=== PATIENT | male | born 1980 | race Caucasian/White ===

== ENCOUNTER 2023-03-04 08:16 | Emergency (ER) | payer OTHER, SELFPAY ==
[2023-03-04 08:21] VITALS: BP 146/104; PULSE 90; RESP 14; TEMP 36.8; O2SAT 97; BMI 27.9
--- NOTE | 2023-03-04 08:57 | ED_ITS ---
HPI - Dental/Oral General: Chief complaint: Dental/Oral Stated complaint: Dental/Fever, Swelling, pain Time Seen by Provider: 03/04/23 08:20 History of Present Illness: Patient presents to the ER with complaints of right-sided facial pain and swelling. Patient had a root canal on 02/28/2023 and has increased pain and swelling since procedure. Patient was initially put on a penicillin and within a couple days thought the pain and swelling was getting worse so he called the dentist to change him over to clindamycin. Patient says the overall he is feeling better but is still swollen and painful. MD Complaint: tooth pain Onset (ago): day(s) Duration: constant Severity: mild Relieving factors: nothing Exacerbating factors: chewing, drinking fluids and swallowing Context: other (Recent root canal) Treatment prior to arrival: none Review of Systems General: Reports: 10 or more systems reviewed and unremarkable except in HPI and below Physical Exam Const: COMMON NORMALS: no acute distress, average body habitus, patient oriented x3, no limitations, healthy appearing, alert and well nourished HENMT: COMMON NORMALS: normocephalic, atraumatic, hearing grossly normal bilaterally, external ears normal, Normal external nose present and moist oral mucous membranes HEAD & SCALP: normocephalic and atraumatic NOSE: Normal external nose present EXTERNAL EAR: Yes external ears normal OTHER: Swelling noted over right mandibular region Eye: COMMON NORMALS: Equal, round and reactive pupils present, EOMs intact bilaterally, conjunctivae normal and no scleral icterus CONJUNCTIVA: Yes conjunctivae normal PUPIL: Yes Equal, round and reactive pupils present Neck/C-Spine: COMMON NORMALS: full ROM, no lymphadenopathy, supple, no mening eal signs, no JVD and Thyroid normal THYROID: Thyroid normal Chest: COMMONS NORMALS: normal inspection of the chest and normal palpation of entire chest wall Resp: COMMON NORMALS: normal respiratory effort, No retractions, No use of accessory muscles and clear to auscultation bilaterally AUSCULTATION: clear to auscultation bilaterally Cardio: COMMON NORMALS: no JVD, regular rate, regular rhythm, S1 normal heart sound present, S2 normal heart sound present, No gallops present (Cardio), No clicks present (Cardio), No murmurs present (Cardio) and No rub (Cardio) RAT E: regular rate RHYTHM: regular rhythm HEART SOUNDS: S1 normal heart sound present and S2 normal heart sound present GI: COMMON NORMALS: Normal to inspection, nondistended, normoactive bowel sounds present, Soft to palpation, non-tender, No hepatosplenomegaly present and no masses PALPATION: Yes Soft to palpation and Yes No hepatosplenomegaly present Neuro: COMMON NORMALS: patient oriented x3 SENSORIUM/ORIENTATION: Yes alert MENINGEAL SIGNS: Yes no meningeal signs Course Vital Signs: Vital signs: Vital Signs Temperature 98.2 F 03/04/23 08:21 Pulse Rate 90 03/04/23 08:21 Respiratory Rate 14 03/04/23 08:21 Blood Pressure 146/104 03/04/23 08:21 Pulse Oximetry 97 03/04/23 08:21 Oxygen Delivery Me thod Room Air 03/04/23 08:21 MDM - Dental/Oral Medical Decision Making Patient presents to the ER with complaints of right mandibular swelling post root canal. Patient is currently on clindamycin which is improving the patient's overall feeling but the area still swollen. Patient is reluctant to eat or drink secondary to pain. Patient was given IV bolus of normal saline,: Toradol 30 mg and Decadron 10 mg IV. Patient will be instructed to continue his antibiotic regimen and to follow-up with his dentist after the holidays. Differential Diagnosis Unlikely gingival abscess, dental caries, toothache, dental abscess, fracture of tooth or aphthous ulcer Medical Records I reviewed the patient's medical records. Lab Data I reviewed the patient's lab results. Discharge Plan Discharge Patient Disposition: Home Clinical Impression: Mandibular swelling Condition: Stable Discharge Orders: Discharge ED (Routine); Ordered 03/04/23 Ordered By: Cipriano Goodwin Referrals: Vadim Hui MD [Primary Care Provider] - Activity Restrictions/Additional Instructions: Please finish your antibiotics as directed by the dentist. Please take Tylenol and/or ibuprofen as directed for pain. If pain and swelling does not improve please follow back up with a dentist. Coding Level of Care Code ED Environmental Lead for Osiel Victor
[2023-03-04] MEDS: sodium chloride 0.9% 1,000 ML 999 ML IV (09:23)
[2023-03-04] MEDS: dexamethasone 10 mg/mL INJ IVP (09:24)
[2023-03-04] MEDS: ketorolac 30 mg/mL INJ IVP (09:24)
== END 2023-03-04 10:53 | disposition home or self-care (01) ==
PROVIDERS: Emergency Provider Emergency Medicine; PCP Family Medicine
DX: M79.89 Other specified soft tissue disorders (principal)
CPT/HCPCS: 96361; 96374; 96375; 99284; J1100; J1885; J7030

== ENCOUNTER 2023-03-06 03:14 | Emergency (ER) | payer OTHER, SELFPAY ==
--- NOTE | 2023-03-06 03:15 | ED_ITS ---
HPI - Dental/Oral General: Chief complaint: Dental/Oral Stated complaint: Tooth Pain Time Seen by Provider: 03/06/23 03:15 History of Present Illness: Mr. Mora is a 43-year-old gentleman presenting to the emergency department for evaluation of dental pain. He notes undergoing a root canal on 02/28. He developed a fever postoperatively and was placed on penicillin. He subsequently had increased swelling and was switched to clindamycin no was apparently accidentally only taking 1 dose daily as opposed to 4 pills daily. He presented to the ER on 03/04 and at that time was given steroids and NSAIDs with improvement in symptoms. He was seen by dentist on 03/05 without evidence of reported complication postoperatively. Currently endorses increased pain and swelling making it difficult to eat with sensation of jaw misalignment. Denies current fevers. Overall course of symptoms has persisted. Transient relief from previous treatments. Denies shortness of breath or difficulty tolerating oral secretions. No other specific changes in health, exacerbating, or alleviat ing factors identified. Teeth map: 1. Review of Systems General: Reports: 10 or more systems reviewed and unremarkable except in HPI and below PFSH ED PFSH: Medical History (Updated 03/16/23 @ 10:40 by Scott Nair MD) No significant past medical history Surgical History (Updated 03/16/23 @ 10:40 by Scott Nair MD) No significant past surgical history Physical Exam Const: COMMON NORMALS: alert GENERAL APPEARANCE: cooperative and well developed HENMT: COMMON NORMALS: normocephalic and atraumatic HEAD & SCALP: normocephalic and atraumatic OTHER: Swelling noted in the right posterior mandibular region with some extension. Initially moderate trismus. No evidence of hemorrhage. No evidence of airway distortion/uvular displacement. Eye: COMMON NORMALS: conjunctivae normal CONJUNCTIVA: Yes conjunctivae normal SCLERA: sclerae normal Neck/C-Spine: COMMON NORMALS: supple GENERAL: Yes trachea midline Resp: COMMON NORMALS: normal respiratory effort EFFORT & INSPECTION: Yes able to speak in complete sentences Cardio: COMMON NORMALS: regular rate and regular rhythm RATE: regular rate RHYTHM: regular rhythm GI: COMMON NORMALS: Soft to palpation PALPATION: Yes Soft to palpation and No Tenderness to palpation present (GI) Extremity: GENERAL: Yes normal exam except as noted and No edema Neuro: COMMON NORMALS: moves all extremities SENSORIUM/ORIENTATION: Yes alert and No Orientation impaired Psych: COMMON NORMALS: mental status grossly normal and Normal thought process present THOUGHT PROCESS: Normal thought process present Course Vital Signs: Vital signs: Vital Signs Temperature 98.5 F 03/06/23 03:22 Pulse Rate 69 03/06/23 04:53 Respiratory Rate 18 03/06/23 04:53 Blood Pressure 143/88 03/06/23 04:53 Pulse Oximetry 92 03/06/23 04:53 Oxygen Delivery Me thod Room Air 03/06/23 03:22 [facility] - Dental/Oral Medical Decision Making 43-year-old gentleman presenting due to postoperative concern. History as noted above. Exam as above. Patient was seen by dentist yesterday and no evidence of deep infection noted at that time. Patient is nontoxic. Treated with analgesia, steroids, IV antibiotic given history of incorrect medication dosage, fluids. On reassessment feel significantly improved. Trismus has essentially resolved. Satisfactory for continued outpatient management with analgesia and strict return precautions. The results of ED evaluation were discussed with the patient including prescriptions and/or symptomatic cares (if applicable) including appropriate and responsible use, followup plan, and return precautions. The patient verbalized understanding and felt safe for discharge. Medical Records I reviewed the patient's medical records. Lab Data I reviewed the patient's lab results. Discharge Plan Discharge Patient Disposition: Home Clinical Impression: Mouth swelling, Pain, dental, TMJ inflammation, Post-operative state Condition: Stable Prescriptions: New oxycodone 5 mg tablet 5 mg PO Q4H PRN (Reason: pain) Qty: 10 0RF Discharge Orders: Discharge ED (Routine); Ordered 03/06/23 Ordered By: Scott Nair Referrals: Vadim Hui MD [Primary Care Provider] - Discharge Diet: As Directed Discharge Activity: Limit activity as instructed Patient Instructions: Temporomandibular Disorder (ED), Root Canal (DC), Opioid Safety Activity Restrictions/Additional Instructions: Thank you for visiting the emergency department. You were seen and evaluated for jaw pain in the context of recent procedure. The exact cause of your symptoms is unclear however may be related to irritation and postoperative swelling. We are pleased that you had improvement in treatment. Please follow all previously given instructions. Please continue your antibiotics. I will prescribe oxycodone as discussed, use this cautiously. You may use [id number] medications such as acetaminophen and ibuprofen for pain however please do not exceed the daily recommended dosage as listed on the packaging and please keep in mind that many namebrand medications contain the same active ingredients. Please avoid these medications if previously instructed to do so by another physician due to other underlying medical condition. Please follow-up with your dentist. Return to the emergency department for worsening symptoms, fevers, difficulty swallowing or breathing, or anything else that you are concerned about and feel needs emergency department evaluation. Coding Level of Care Code ED Benefits Analyst for Osiel Victor
[2023-03-06 03:20] VITALS: BMI 28.8
[2023-03-06 03:22] VITALS: BP 160/90; PULSE 73; RESP 16; TEMP 36.9; O2SAT 94
[2023-03-06 03:40] VITALS: RESP 18
[2023-03-06] MEDS: dexamethasone 10 mg/mL INJ IVP (03:40)
[2023-03-06] MEDS: morphine 4 mg/mL SDV 1 mL IVP (03:40)
[2023-03-06] MEDS: ketorolac 30 mg/mL INJ 15 MG IVP (03:40)
[2023-03-06] MEDS: sodium chloride 0.9% 1,000 ML 999 ML IV (03:41)
[2023-03-06] MEDS: piperacillin-tazobactam 4.5 GM in sodium chloride 0.9% (plus) 50 ML IV (03:50)
[2023-03-06 04:53] VITALS: BP 143/88; PULSE 69; RESP 18; O2SAT 92
== END 2023-03-06 04:57 | disposition home or self-care (01) ==
PROVIDERS: Emergency Provider Emergency Medicine; PCP Family Medicine
DX: K08.89 Other specified disorders of teeth and supporting structures (principal); M26.69 Other specified disorders of temporomandibular joint; Z98.890 Other specified postprocedural states
CPT/HCPCS: 96361; 96374; 96375; 99284; J1100; J1885; J2270; J2543; J7030

== ENCOUNTER 2023-03-08 18:28 | Emergency (ER) | payer OTHER, SELFPAY ==
[2023-03-08] VITALS (12 sets, daily range): BP systolic 129–188; BP diastolic 81–109; PULSE 60–80; RESP 16–18; TEMP 36.9; O2SAT 95–98
--- NOTE | 2023-03-08 18:45 | W.ED.DENTAL ---
HPI - Dental/Oral General: Chief complaint: Dental/Oral Stated complaint: Root Canal Problems Time Seen by Provider: 03/08/23 18:44 History of Present Illness: Mr. Mora is a 43-year-old gentleman now approximately 8 days postop from root canal presenting with persistent swelling and pain. He has been seen in the ER previously. He has been on analgesics, steroids, antibiotics, he has also followed up with his primary care provider. Despite this he has had continued symptoms. Moderate in intensity with worsening rawness of the buccal surface and pain related to contact with teeth. Limited range of motion of jaw. No other specific changes in health, exacerbating, or alleviating factors identified. Onset (ago): day(s) Duration: constant Severity: moderate Relieving factors: nothing Exacerbating factors: chewing and swallowing Context: other Associated symptoms: Reports gum swelling, odynophagia and sore throat Review of Systems General: Reports: 10 or more systems reviewed and unremarkable except in HPI and below ENMT: Reports: odynophagia PFS ED PFSH: Medical History (Updated 03/16/23 @ 10:40 by Scott Nair MD) No significant past medical history Surgical History (Updated 03/16/23 @ 10:40 by Scott Nair MD) No significant past surgical history Physical Exam Const: COMMON NORMALS: alert GENERAL APPEARANCE: cooperative and well developed HENMT: COMMON NORMALS: normocephalic and atraumatic HEAD & SCALP: normocephalic and atraumatic OTHER: Right mandibular soft tissue swelling posteriorly. There is swelling of the soft tissue both posterior pharynx as well as buccal tissue with irritation related to swelling and contact with teeth. Eye: COMMON NORMALS: conjunctivae normal CONJUNCTIVA: Yes conjunctivae normal SCLERA: sclerae normal Neck/C-Spine: COMMON NORMALS: supple GENERAL: Yes trachea midline Resp: COMMON NORMALS: normal respiratory effort EFFORT & INSPECTION: Yes able to speak in complete sentences Cardio: COMMON NORMALS: regular rate and regular rhythm RATE: regular rate RHYTHM: regular rhythm Extremity: GENERAL: Yes normal exam except as noted and No edema Neuro: COMMON NORMALS: moves all extremities SENSORIUM/ORIENTATION: Yes alert and No Orientation impaired Psych: COMMON NORMALS: mental status grossly normal and Normal thought process present THOUGHT PROCESS: Normal thought process present Course Vital Signs: Vital signs: Vital Signs Temperature 98.5 F 03/08/23 18:36 Pulse Rate 61 03/08/23 23:30 Respiratory Rate 18 03/08/23 23:30 Blood Pressure 168/100 03/08/23 23:30 Pulse Oximetry 96 03/08/23 23:30 Oxygen Delivery Me thod Room Air 03/08/23 23:28 MDM - Dental/Oral Medical Decision Making 43-year-old gentleman presenting as repeat presentation for worsening swelling pain. Exam as above. Patient is nontoxic however uncomfortable appearing. No evidence of impending airway compromise. Labs notable for leukocytosis and mild hemoconcentration. Thrombocytosis which is likely reactive. Metabolic panel with mild hyponatremia and hypochloremia. Glucose is mildly elevated though clinical presentation is inconsistent with DKA and likely reactive. CT demonstrates large multiloculated fluid collection which is likely large peritonsillar abscess with inferior extension suggestive of Ludewig's angina. During ED course patient treated with analgesia, broad-spectrum antibiotics, additional doses of analgesia. Patient requires ENT/OMFS operative intervention. Discussed with OMFS at [facility] and patient accepted by hospital service as transfer. The results of ED evaluation were discussed with the patient including plan for transfer due to requirement for level of care not available if discharged to prevent significant worsening/deterioration. Patient agreeable with plan. Medical Records I reviewed the patient's medical records. Lab Data I reviewed the patient's lab results. 03/08/23 19:09 03/08/23 19:[address] 03/08/23 18:54 IMPRESSION: 1. 6.1 x 4.9 x 3.3 cm multiloculated fluid collection suggestive of a large peritonsillar abscess with inferior extension causing effacement of the parapharyngeal fat to the level of the mandible with a small amount of submandibular subcutaneous edema suggestive of associated Tre's angina. Moderate narrowing of the oropharynx is seen secondary to the mass. 2. Scattered prominent nonspecific nodes throughout the neck measuring up to 11 mm short axis in the right jugulodigastric region. Laboratory Results WBC 18.8 10^3/uL (4.0-10.0) H 03/08/23 19:09 RBC 5.68 10^6/uL (4.1-5.3) H 03/08/23 19:09 Hgb 15.5 g/dL (11.7-16.6) 03/08/23 19:09 Hct 46.9 % (42.0-52.0) 03/08/23 19:09 MCV 82.6 fl (80-94) 03/08/23 19:09 MCH 27.3 pg (28.0-34.0) L 03/08/23 19:09 MCHC 33.0 g/dL (30.0-36.0) 03/08/23 19:09 RDW 11.9 % (12.1-15.1) L 03/08/23 19:09 Plt Count 547 10^3/cmm (130-400) H 03/08/23 19:09 MPV 10.8 fL (7.4-10.4) H 03/08/23 19:09 Neut % (Auto) 84.1 % 03/08/23 19:09 Lymph % (Auto) 9.1 % 03/08/23 19:09 Lassen % (Auto) 4.9 % 03/08/23 19:09 Eos % (Auto) 0.0 % 03/08/23 19:09 Baso % (Auto) 0.2 % 03/08/23 19:09 Neut # (Auto) 15.81 10^3/uL (1.8-7.7) H 03/08/23 19:09 Lymph # (Auto) 1.7 10^3/uL (0.8-4.8) 03/08/23 19:09 Lassen # (Auto) 0.9 10^3/uL (0.2-0.9) 03/08/23 19:09 Eos # (Auto) 0.0 10^3/uL (0.0-0.8) 03/08/23 19:09 Baso # (Auto) 0.0 10^3/uL (0.0-0.1) 03/08/23 19:09 Nucleated RBC % (auto) 0 % 03/08/23 19:09 Nucleated RBCs # 0.0 /100WBC 03/08/23 19:09 Sodium 132 mmol/L (136-145) L 03/08/23 19:09 Potassium 4.6 mmol/L (3.5-5.1) 03/08/23 19:09 Chloride 95 mmol/L (98-107) L 03/08/23 19:09 Carbon Dioxide 20 mmol/L (22-29) L 03/08/23 19:09 Anion Gap 21.6 (5-19) H 03/08/23 19:09 BUN 12 mg/dL (6-20) 03/08/23 19:09 Creatinine 0.6 mg/dL (0.7-1.2) L 03/08/23 19:09 GFR Calculation 147.8 mL/min (90-130) H 03/08/23 19:09 Glucose 289 mg/dL (65-115) H 03/08/23 19:09 Calculated Osmolality 284 mOsm/kg (285-295) L 03/08/23 19:09 Lactic Acid 1.6 mmol/L (0.5-2.2) 03/08/23 19:09 Calcium 8.5 mg/dL (8.5-10.5) 03/08/23 19:09 Total Bilirubin 0.4 mg/dL (0.15-1.2) 03/08/23 19:09 AST 11 U/L (0-40) 03/08/23 19:09 ALT 24 U/L (0-41) 03/08/23 19:09 Alkaline Phosphatase 81 U/L (40-130) 03/08/23 19:09 Total Protein 7.2 g/dL (6.6-8.7) 03/08/23 19:09 Albumin 3.7 g/dL (3.5-5.2) 03/08/23 19:09 Globulin 3.5 g/dL (1.3-4.6) 03/08/23 19:09 Critical Care Time Critical Care Time: Critical Care Time: Yes Total Critical Care Time: 35 Attestation: Due to a high probability of clinically significant, possibly life threatening deterioration, the patient required my highest level of attention and preparedness to intervene emergently and I personally spent this critical care time directly and personally managing the patient. This critical care time included obtaining a history; examining the patient; pulse oximetry; ordering and review of laboratory and imaging studies; arranging urgent treatment with development of a management plan; evaluation of patient's response to treatment; frequent reassessment; and, discussions with other providers as applicable. It was exclusive of separately billable procedures. Primary system involved is infectious disease Discharge Plan Discharge Patient Disposition: Xfer Short-Term Hosp Clinical Impression: Abscess, peritonsillar, Tre's angina, Complication, postoperative infection Condition: Stable Referrals: Vadim Hui MD [Primary Care Provider] - Coding Level of Care Code ED Feller Seam Operator for Osiel Victor
--- NOTE | 2023-03-08 18:54 | CTR_ITS ---
PROCEDURE INFORMATION: Exam: CT Neck With Contrast Exam date and time: 03/08/2023 7:19 PM Age: 43 years old Clinical indication: Painful swallowing; Prior surgery; Surgery date: <1 month; Surgery type: Root canal; Additional info: Eval deep space infection/abscess, persistent swelling and pain 9 days post root canal TECHNIQUE: Imaging protocol: Computed tomography of the neck with contrast. Radiation optimization: All CT scans at this facility use at least one of these dose optimization techniques: automated exposure control; mA and/or kV adjustment per patient size (includes targeted exams where dose is matched to clinical indication); or iterative reconstruction. Contrast material: OMNI 350; Contrast volume: 75 ml; Contrast route: INTRAVENOUS (IV); REPORTING DATA: Count of CT and Cardiac NM exams in prior 12 months: This patient has received 0 known CTs and 0 known cardiac nuclear medicine studies in the 12 months prior to the current study. COMPARISON: No relevant prior studies available. RADIATION DOSE METRICS: Total DLP (mGy-cm): 234 FINDINGS: Pharynx: 6.1 x 4.9 x 3.3 cm multiloculated fluid collection suggestive of a large peritonsillar abscess with inferior extension causing effacement of the parapharyngeal fat to the level of the mandible with a small amount of submandibular subcutaneous edema suggestive of associated Tre's angina. Moderate narrowing of the oropharynx is seen secondary to the mass. Larynx: Unremarkable. Epiglottis is normal. Prevertebral and retropharyngeal spaces: Unremarkable. Salivary glands: Normal. Glands are normal in size. Thyroid: Normal. No enlarged or calcified nodules. Lymph nodes: Scattered prominent nonspecific nodes throughout the neck measuring up to 11 mm short axis in the right jugulodigastric region. Trachea: Visualized trachea is unremarkable. Lungs: Unremarkable as visualized. Bones/joints: Unremarkable. No acute fracture. Soft tissues: See Pharynx finding. CT/CT neck w con* [id number] IMPRESSION: 1. 6.1 x 4.9 x 3.3 cm multiloculated fluid collection suggestive of a large peritonsillar abscess with inferior extension causing effacement of the parapharyngeal fat to the level of the mandible with a small amount of submandibular subcutaneous edema suggestive of associated Tre's angina. Moderate narrowing of the oropharynx is seen secondary to the mass. 2. Scattered prominent nonspecific nodes throughout the neck measuring up to 11 mm short axis in the right jugulodigastric region.
[2023-03-08 19:24] LABS: Basophils % 0.2 %; Hematocrit 46.9 % (42.0-52.0); Hemoglobin 15.5 g/dL (11.7-16.6); Lymphocytes # 1.7 10^3/uL (0.8-4.8); Lymphocytes % 9.1 %; Mean Corpuscular Hemoglobin 27.3 pg (28.0-34.0); Mean Corpuscular Volume 82.6 fl (80-94); Mean Platelet Volume 10.8 fL (7.4-10.4); Monocytes # 0.9 10^3/uL (0.2-0.9); Monocytes % 4.9 %; Neutrophils # 15.81 10^3/uL (1.8-7.7); Neutrophils % 84.1 %; Nucleated Red Blood Cells % 0 %; Platelet Count 547 10^3/cmm (130-400); Red Blood Count 5.68 10^6/uL (4.1-5.3); Red Cell Distribution Width 11.9 % (12.1-15.1); White Blood Count 18.8 10^3/uL (4.0-10.0)
[2023-03-08] MEDS: iohexol 350 mg/mL 500 mL Btl (per mL) IV (19:26)
[2023-03-08 19:50] LABS: Alanine Aminotransferase 24 U/L (0-41); Albumin Level 3.7 g/dL (3.5-5.2); Alkaline Phosphatase 81 U/L (40-130); Anion Gap 21.6 (5-19); Aspartate Amino Transferase 11 U/L (0-40); Blood Urea Nitrogen 12 mg/dL (6-20); Calcium 8.5 mg/dL (8.5-10.5); Carbon Dioxide 20 mmol/L (22-29); Chloride 95 mmol/L (98-107); Globulin 3.5 g/dL (1.3-4.6); Glomerular Filtration Rate 147.8 mL/min (90-130); Glucose 289 mg/dL (65-115); Osmolality Calculated 284 mOsm/kg (285-295); Potassium 4.6 mmol/L (3.5-5.1); Sodium 132 mmol/L (136-145); Total Bilirubin 0.4 mg/dL (0.15-1.2); Total Protein 7.2 g/dL (6.6-8.7)
[2023-03-08] MEDS: morphine 4 mg/mL SDV 1 mL IVP ×2 (19:58→21:33)
[2023-03-08 20:02] LABS: Lactic Sepsis W/Reflex 1.6 mmol/L (0.5-2.2)
[2023-03-08] MEDS: piperacillin-tazobactam 4.5 GM in sodium chloride 0.9% (plus) 50 ML IV (20:04)
[2023-03-08] MEDS: vancomycin 2,000 MG/400 ML PIGGYBACK 200 MG IV (20:37)
[2023-03-08] MEDS: HYDROmorphone 1 mg/mL INJ 1 mL 0.5 MG IVP ×2 (22:36→23:28)
== END 2023-03-08 23:30 | disposition short-term general hospital (02) ==
PROVIDERS: Emergency Provider Emergency Medicine; PCP Family Medicine
DX: J36 Peritonsillar abscess (principal); K12.2 Cellulitis and abscess of mouth; T81.40XA Infection following a procedure, unspecified, initial encounter; Y83.8 Other surgical procedures as the cause of abnormal reaction of the patient, or of later complication, without mention of misadventure at the time of the procedure
CPT/HCPCS: 36415; 70491; 80053; 83605; 85025; 87040; 96365; 96366; 96367; 96375; 96376; 99285; J1170; J2270; J2543; J3372; Q9967